=== PATIENT | male | born 1975 | race Asian ===

== ENCOUNTER 2018-09-14 10:53 | Emergency (ER) | payer OTHER ==
[~2018-09-14] VITALS: Ht 175.3 cm; Wt 96.6 kg
[2018-09-14 10:58] VITALS: Ht 175.3 cm; Wt 96.6 kg
[2018-09-14 11:31] LABS: PLATELET COUNT 270 x10^3mcL (130-400); RED CELL DISTRIBUTION WIDTH 13.1 % (11.5-14.5)
[2018-09-14 11:52] LABS: CALCIUM 8.5 mg/dL (8.5-10.1); CARBON DIOXIDE 28.5 mmol/L (21-32); CHLORIDE SERUM 106 mmol/L (98-107); CREATININE SERUM 0.8 mg/dL (0.7-1.3); GFR1 > 60 mL/min; GLUCOSE SERUM 88 mg/dL (74-106); POTASSIUM SERUM 3.8 mmol/L (3.5-5.1); SODIUM SERUM 140 mmol/L (136-145)
[2018-09-14 11:56] LABS: ALKALINE PHOSPHATASE 92 U/L (46-116); ALT/SGPT 64 U/L (16-63); AST/SGOT 24 U/L (15-37); BILIRUBIN TOTAL 0.47 mg/dL (0.20-1.00); LIPASE 136 IU/L (73-393); TOTAL PROTEIN, SERUM 7.7 g/dL (6.4-8.2)
[2018-09-14 12:26] VITALS: BP 127/88
== END 2018-09-14 12:26 | disposition home or self-care (01) ==
LOC: ED 10:53
PROVIDERS: Emergency Medicine
DX: R10.13 Epigastric pain (principal); R11.0 Nausea; K92.1 Melena; F17.200 Nicotine dependence, unspecified, uncomplicated; Z71.6 Tobacco abuse counseling
CPT/HCPCS: 36415; 99406; Q0162